=== PATIENT | male | born 1980 | race Caucasian/White ===

== ENCOUNTER 2016-10-26 00:41 | Emergency (ER) | payer BC ==
[~2016-10-26] VITALS: Ht 188 cm; Wt 136.1 kg
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
[2016-10-26] MEDS ORDERED: HYDR-971 PO (01:15)
[2016-10-26] MEDS ORDERED: DIPHTH,PERTUSS(ACELL),TET TOX 0.5 ML DISP.SYRIN. VAX IM ONE ×2 (01:15→01:33)
[2016-10-26] MEDS ORDERED: HYDROcodone/APAP 5/325MG 1 TAB TABLET PO ONE (01:30)
[2016-10-26] MEDS ORDERED: HYDROcodone/APAP 5/325MG 1 TAB TABLET ONE (01:33)
[2016-10-26 01:34] VITALS: BP 165/92
== END 2016-10-26 01:50 | disposition home or self-care (01) ==
LOC: ER 00:41
DX: T23.221A Burn of second degree of single right finger (nail) except thumb, initial encounter (principal); T23.251A Burn of second degree of right palm, initial encounter; T23.211A Burn of second degree of right thumb (nail), initial encounter; T23.252A Burn of second degree of left palm, initial encounter; T23.222A Burn of second degree of single left finger (nail) except thumb, initial encounter; T31.55 Burns involving 50-59% of body surface with 50-59% third degree burns; T31.22 Burns involving 20-29% of body surface with 20-29% third degree burns; Z88.2 Allergy status to sulfonamides; X10.1XXA Contact with hot food, initial encounter; Y93.G3 Activity, cooking and baking; Y92.89 Other specified places as the place of occurrence of the external cause; Y99.8 Other external cause status
CPT/HCPCS: 16020; 90471; 90715; 99283-25; 99284-25